=== PATIENT | male | born 1985 | race Caucasian/White ===

== ENCOUNTER 2024-12-29 20:45 | Emergency (ER) | payer MEDICAID, SELFPAY ==
[2024-12-29 21:03] VITALS: BP 142/86
[2024-12-29 21:31] VITALS: BMI 20.7
--- NOTE | 2024-12-29 23:23 | ED.GENMED ---
History of Present Illness
<ST MataND - Last Filed: 12/30/24 05:38>
General
Chief Complaint: Suicidal Ideation
Source: patient
Exam Limitations: none
Time Seen by Provider: 12/29/24 21:55
History of Present Illness
History of Present Illness:
39 y/o male pt with PMH of PTSD, ADHD, and diabetes presenting to ED for suicide ideation. Pt states he lives with mother in an apartment, they were evicted in May of last year after his mom was laid off. Since then he has been struggling
greatly with stability. States he stayed with several friends for a while and a homeless usp. Currently has been living with his mom in his mom's car since 12/26/24. Pt states he is losing hope and 'things keep declining'. Denies having a plan to
hurt himself and denies attempting to hurt himself today. States that he has tried in the past but it 'never works'. Previously, he has had 'bouts' where he gets angry and tries to walk into traffic, throw himself out of the moving car, or has tried
taking extra insulin. Pt is currently employed part-time and applying for disability.
Review of Systems
<ST MataND - Last Filed: 12/30/24 05:38>
Review of Systems
Psychiatric: Reports depression and other (hopeless)
Phy Exam
<Corbin Arredondo [facility] - Last Filed: 12/30/24 05:38>
General Physical Exam
General Presentation: other
General age: appears stated age
General Habitus: normal
General Mental: alert and tearful
Cardiovascular Exam
Cardiovascular Exam: regular rate/rhythm
Pulmonary Exam
Pulmonary Exam: lungs clear
Psychiatric Exam
Psychiatric Exam: depressed and other (flat affect)
Course
<Corbin Arredondo [facility] - Last Filed: 12/30/24 05:38>
Orders/Labs/Results
Orders:
Orders
12/29/24 21:14
1:1 Observation - Suicide/ Violent Behavior As Directed
Crisis Consult Urgent
Reason for Consult: depression, SI
12/29/24 21:58
observation [ED Special Safety Observation] ONCE
Observation level: One to Two
12/29/24 23:07
Complete Blood Count/No Diff Urgent
Comprehensive Metabolic Panel Urgent
Urinalysis Reflex To Culture Urgent
Date Specimen was Collected: 12/30/24
Time Specimen was Collected: 03:49
Urine Drug Abuse Screen Urgent
Date Specimen was Collected: 12/30/24
Time Specimen was Collected: 03:49
12/30/24 03:50
Fentanyl, Urine Urgent
Urine Microscopic Reflex Cult Urgent
Abnormal Lab Results
12/30/24 12/30/24 12/30/24
00:55 01:49 02:11
RBC 3.71 L 10^6/uL
(4.70-6.10)
Hgb 11.7 L g/dL
(13.0-18.0)
Hct 32.4 L %
(39.0-52.0)
MCH 31.5 H pg
(27.0-31.0)
Carbon Dioxide 34 H mmol/L
(22-30)
BUN 25 H mg/dl
(9-20)
Glucose 51 L* mg/dl
(70-99)
Total Protein 5.9 L g/dl
(6.3-8.2)
Urine Bacteria (Reflex)
Urine Albumin (Reflex)
Ur Oxycodone Screen
Ur Amphetamines Screen
U Methamphetamines Scrn
U Benzodiazepines Scrn
U Marijuana (THC) Screen
POC Glucose 51 L* mg/dl 66 L mg/dl
(99) (99)
12/30/24 12/30/24
02:39 03:50
RBC
Hgb
Hct
MCH
Carbon Dioxide
BUN
Glucose
Total Protein
Urine Bacteria (Reflex) Few A
(Negative)
Urine Albumin (Reflex) 2+ A
(Neg - Trace)
Ur Oxycodone Screen Positive H
(Negative)
Ur Amphetamines Screen Positive H
(Negative)
U Methamphetamines Scrn Positive H
(Negative)
U Benzodiazepines Scrn Positive H
(Negative)
U Marijuana (THC) Screen Positive H
(Negative)
POC Glucose 118 H mg/dl
()
12/30/24 00:55
12/30/24 00:55
Vital Signs
Initial and Last Documented VS:
Initial Vital Signs
Temp Pulse Resp BP Pulse Ox
97.4 F 88 18 142/86 100
12/29/24 21:03 12/29/24 21:03 12/29/24 21:03 12/29/24 21:03 12/29/24 21:03
Last Documented Vital Signs
Temp Pulse Resp BP Pulse Ox
97.4 F 88 18 142/86 100
12/29/24 21:03 12/29/24 21:03 12/29/24 21:03 12/29/24 21:03 12/29/24 21:03
<Dagoberto Sin, DO - Last Filed: 12/30/24 00:22>
Orders/Labs/Results
Orders:
Orders
12/29/24 21:14
1:1 Observation - Suicide/ Violent Behavior As Directed
Crisis Consult Urgent
Reason for Consult: depression, SI
12/29/24 21:58
observation [ED Special Safety Observation] ONCE
Observation level: One to Two
12/29/24 23:07
Complete Blood Count/No Diff Urgent
Comprehensive Metabolic Panel Urgent
Urinalysis Reflex To Culture Urgent
Date Specimen was Collected: 12/30/24
Time Specimen was Collected: 03:49
Urine Drug Abuse Screen Urgent
Date Specimen was Collected: 12/30/24
Time Specimen was Collected: 03:49
12/30/24 03:50
Fentanyl, Urine Urgent
Urine Microscopic Reflex Cult Urgent
Abnormal Lab Results
12/30/24 12/30/24 12/30/24
00:55 01:49 02:11
RBC 3.71 L 10^6/uL
(4.70-6.10)
Hgb 11.7 L g/dL
(13.0-18.0)
Hct 32.4 L %
(39.0-52.0)
MCH 31.5 H pg
(27.0-31.0)
Carbon Dioxide 34 H mmol/L
(22-30)
BUN 25 H mg/dl
(9-20)
Glucose 51 L* mg/dl
(70-99)
Total Protein 5.9 L g/dl
(6.3-8.2)
Urine Bacteria (Reflex)
Urine Albumin (Reflex)
Ur Oxycodone Screen
Ur Amphetamines Screen
U Methamphetamines Scrn
U Benzodiazepines Scrn
U Marijuana (THC) Screen
POC Glucose 51 L* mg/dl 66 L mg/dl
(70-99) (70-99)
12/30/24 12/30/24
02:39 03:50
RBC
Hgb
Hct
MCH
Carbon Dioxide
BUN
Glucose
Total Protein
Urine Bacteria (Reflex) Few A
(Negative)
Urine Albumin (Reflex) 2+ A
(Neg - Trace)
Ur Oxycodone Screen Positive H
(Negative)
Ur Amphetamines Screen Positive H
(Negative)
U Methamphetamines Scrn Positive H
(Negative)
U Benzodiazepines Scrn Positive H
(Negative)
U Marijuana (THC) Screen Positive H
(Negative)
POC Glucose 118 H mg/dl
(70-99)
12/30/24 00:55
12/30/24 00:55
Vital Signs
Initial and Last Documented VS:
Initial Vital Signs
Temp Pulse Resp BP Pulse Ox
97.4 F 88 18 142/86 100
12/29/24 21:03 12/29/24 21:03 12/29/24 21:03 12/29/24 21:03 12/29/24 21:03
Last Documented Vital Signs
Temp Pulse Resp BP Pulse Ox
97.4 F 88 18 142/86 100
12/29/24 21:03 12/29/24 21:03 12/29/24 21:03 12/29/24 21:03 12/29/24 21:03
<CARYL August - Last Filed: 12/30/24 05:38>
*Critical Care Note
Total Time (30-74mins, 75-104mins- exclusive of procedures): Not Applicable
<CARYL August - Last Filed: 12/30/24 05:38>
Update Note
Update Note:
Glucose 51 prior to eating, pt checked it after it was 76. States he is currently feeling fine, I gave him orange juice and will do a fingerstick later.
ED Attending Note
<CARYL August - Last Filed: 12/30/24 05:38>
-
Portions of this chart may have been created with voice recognition software.� Occasional wrong word or��sound alike� substitutions may have occurred due to the inherent limitations of voice recognition software.
<Dagoberto Sin DO - Last Filed: 12/30/24 00:22>
ED Attending Note
Patient seen and examined by attending physician: Yes
I performed the substantive portion of visit, reviewed & personally made and approve the management plan that is documented in note by myself or APARNA.: Yes
ED Attending Note:
39-year-old male presents to the emergency department with loss of hope. He is currently homeless. He lives with his mom occasionally. Currently mom is living in a car so patient is staying at a friend's house. He states that he cannot stay
there any longer so he has 'given up '. He states that things keep declining. He is a type I diabetic and has a history of PTSD. While patient does not have a specific plan to harm himself, he states that he is getting worse and worse. He wishes
to sign himself in for treatment. Patient does admit to having suicide attempts in the past but states that they 'never worked '. Patient works part-time at [employer]. He is applying for disability. Patient was seen in conjunction with the PA
student. I have reviewed and agree with the history and treatment plan presented. On my independent physical exam, patient is awake, alert, and oriented x3, eating a sandwich. He is partially edentulous. Heart is regular. Lungs are clear to
auscultation bilaterally wheezes rales or present. Abdomen is soft nontender. Moves all 4 extremities. Patient has been seen by crisis and placement is attempted.
Discharge Plan
Departure
Patient Disposition: Psych Facility
Date of Disposition: 12/30/24
Time of Disposition: 00:21
Condition: Fair
Discharge Problem:
Suicidal ideation
Referrals:
UNKNOWN - PT DOES,NOT KNOW [Family Provider] -
Interventions
Interventions:
*Risk Screen - Suicide Last Done: 12/29/24 21:10
*General Assessment Last Done: 12/29/24 21:07
*Neglect/Abuse Screening Last Done: 12/29/24 21:07
*ED- Fall Risk Assessment Last Done: 12/29/24 21:31
*ED COVID-19 Vaccine History Last Done: 12/29/24 21:07
ED-Psychological Assessment Last Done: 12/29/24 21:31
Discharge Date and Time
Print Language: [id number]
[2024-12-30 01:04] LABS: Hematocrit 32.4 % (39.0-52.0); Hemoglobin 11.7 g/dL (13.0-18.0); Mean Corp Hgb Conc. 36.1 g/dL (33.0-37.0); Mean Corpuscular Hgb 31.5 pg (27.0-31.0); Mean Corpuscular Volume 87.3 fL (80.0-94.0); Mean Platelet Volume 8.4 fL (7.4-10.4); Platelet Count 261 10^3/uL (130-400); Red Blood Cell Count 3.71 10^6/uL (4.70-6.10); Red Cell Dist. Width 12.8 % (11.5-14.5); White Blood Cell Count 6.5 10^3/uL (4.8-10.8)
[2024-12-30 01:27] LABS: ALT (SGPT) 21 U/L (0-50); AST (SGOT) 17 U/L (17-59); Albumin 3.7 g/dl (3.5-5.0); Alkaline Phosphatase 56 U/L (38-126); Blood Urea Nitrogen 25 mg/dl (9-20); Calcium 9.3 mg/dl (8.4-10.2); Carbon Dioxide 34 mmol/L (22-30); Chloride 98 mmol/L (98-107); Estimated Creatinine Clearance 94 ml/min; Glucose 51 mg/dl (70-99); Potassium 3.7 mmol/L (3.5-5.1); Sodium 139 mmol/L (135-145); Total Bilirubin 0.3 mg/dl (0.2-1.3); Total Protein 5.9 g/dl (6.3-8.2); eGFR > 60.00
[2024-12-30 01:51] LABS: Glucose - Point of Care 51 mg/dl (70-99)
[2024-12-30 02:13] LABS: Glucose - Point of Care 66 mg/dl (70-99)
[2024-12-30 02:41] LABS: Glucose - Point of Care 118 mg/dl (70-99)
[2024-12-30 03:54] LABS: Glucose - Point of Care 89 mg/dl (70-99)
[2024-12-30 03:59] LABS: Urine Albumin 2+ (Neg - Trace); Urine Bilirubin Negative (Negative); Urine Character Clear (Clear); Urine Color Yellow; Urine Glucose Negative (Negative); Urine Ketone Negative (Negative); Urine Leukocyte Negative (Negative); Urine Nitrite Negative (Negative); Urine Occult Blood Negative (Negative); Urine Urobilinogen Negative (Neg - 1+); Urine pH 6.5 (5.0-9.0)
[2024-12-30 04:12] LABS: Amphetamines Positive (Negative); Barbiturates Negative (Negative); Benzodiazepines Positive (Negative); Buprenorphine Negative (Negative); Cocaine Negative (Negative); Marijuana Positive (Negative); Methadone Negative (Negative); Methamphetamines Positive (Negative); Opiates Negative (Negative); Phencyclidine Negative (Negative); Tricyclic Antidepressants Negative (Negative)
[2024-12-30 04:21] LABS: Urine Amorphous Seen; Urine Bacteria Few (Negative); Urine Red Blood Cell 0-2 /HPF (0-2); Urine White Cell 0-2 /HPF (0-5)
[2024-12-30 04:25] LABS: Fentanyl, Urine Negative (Negative)
[2024-12-30 06:20] LABS: Glucose - Point of Care 54 mg/dl (70-99)
[2024-12-30 06:41] LABS: Glucose - Point of Care 53 mg/dl (70-99)
[2024-12-30 07:33] LABS: Glucose - Point of Care 67 mg/dl (70-99)
[2024-12-30 07:36] VITALS: BP 128/90
[2024-12-30 08:14] LABS: Glucose - Point of Care 80 mg/dl (70-99)
== END 2024-12-30 10:09 ==
LOC: EMR 20:45
PROVIDERS: EMERGENCY PHYSICIAN Student in an Organized Health Care Education/Training Program
DX: R45.851 Suicidal ideations (principal); F43.10 Post-traumatic stress disorder, unspecified; F90.9 Attention-deficit hyperactivity disorder, unspecified type; E11.9 Type 2 diabetes mellitus without complications; Z59.01 Sheltered homelessness
CPT/HCPCS: 99283; 80053; 80306; 80307; 81003; 81015; 82962; 85027